=== PATIENT | female | born 1960 | race Caucasian/White ===

== ENCOUNTER → 2022-07-08 | Outpatient (CLI) | payer OTHER | END | disposition home or self-care (01) | LOC: SHCH 14:30 | PROVIDERS: ATTEND Internal Medicine Cardiovascular Disease | DX: I31.39 Other pericardial effusion (noninflammatory) (principal); I34.1 Nonrheumatic mitral (valve) prolapse; Z85.3 Personal history of malignant neoplasm of breast; Z98.82 Breast implant status | CPT/HCPCS: 93306 ==

== ENCOUNTER → 2022-09-30 | Outpatient (CLI) | payer BC | END | disposition home or self-care (01) | LOC: SHCH 09:25 | PROVIDERS: ATTEND Internal Medicine Cardiovascular Disease | DX: I31.39 Other pericardial effusion (noninflammatory) (principal) | CPT/HCPCS: 93306 ==

== ENCOUNTER → 2023-05-11 | Outpatient (CLI) | payer BC | END | disposition home or self-care (01) | LOC: SHCH 09:50 | PROVIDERS: ATTEND Internal Medicine Cardiovascular Disease | DX: I31.39 Other pericardial effusion (noninflammatory) (principal) | CPT/HCPCS: 93308 ==

== ENCOUNTER → 2024-11-01 | Outpatient (CLI) | payer BC ==
--- NOTE | 2024-11-01 20:06 | HMCSR ---
APPROVED REPORT EXAM: Two-dimensional and M-mode echocardiogram with Doppler and color Doppler. INDICATION ICD: I31.3 Pericardial effusion 2D Dimensions RVDd3.2 cmAo Root(2D)3.3 (2.0-3.7cm)LVED Vol(simp.)71.0 mL IVSd0.8 (0.7-1.1cm)LVOT diam2.0 (1.8-2.4cm)LVES Vol(simp.)26.0 mL LVDd3.8 (3.8-5.6cm)IVC diam1.7 cmLVEF(%, simp.)63 % PWd0.8 (0.7-1.1cm)LA ESV INDEX (BP)24.21 mL/m2 Aortic Valve AoV Vmax1.2 m/Zenia Peak GR5.7 mmHgLVOT Vmax1.2 m/s AoV VTI0.3 mAo Mean GR3.1 mmHgLVOT VTI0.30 m PAVAN (VMAX)3.4 cm2AVA (VTI) 3.4 cm2 Mitral Valve MV E Tjem293.4 cm/sDECEL Ckkc393 ms MV A Vmax56.3 cm/sP 1/2 T67 ms E/A ratio2.1MVA (PHT)3.3 cm2 TDI E/E' Ewxhzj12.8E/E' Ildztnb59.6 Pulmonary Valve PV Vmax0.7 m/sPV VTI0.14 mPV Mean GR1 mmHg PV Peak GR2.2 mmHgPI End Dolores. Micheal 0.8 cm/s Tricuspid Valve TR Vmax1.8 m/sRAP (EST) 3 vqKgFKGN58.1 mmHg TR Peak GR13.1 mmHg Left Ventricle Left ventricular cavity size is normal. There is normal LV segmental wall motion. There is normal lef t ventricular wall thickness. LVEF is 60-65%. Indeterminate diastolic filling pattern. Normal LA size , Normal RVSP. Elevated E/E' septal and lateral. Normal E' septal. Reduced E' lateral. Right Ventricle The right ventricle is normal size. The right ventricular systolic function is normal. Atria The left atrium size is normal. The right atrium size is normal. Aortic Valve Aortic valve is trileaflet. The aortic valve opens well. No aortic regurgitation is present. There is no aortic valvular stenosis. 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 Trace mitral valve regurgi tation. There is no mitral valve regurgitation noted. There is no mitral valve stenosis. Tricuspid Valve The tricuspid valve leaflets appear normal. There is trace tricuspid regurgitation. Normal RVSP estim ate. Pulmonic Valve Pulmonic valve is not well visualized. There is trace pulmonic valvular regurgitation. Great Vessels The aortic root is normal in size. The IVC is normal in size and collapses >50% with inspiration. Pericardium Trace pericardial effusion. Conclusion The left atrium size is normal. Left ventricular cavity size is normal. There is normal left ventricular wall thickness. There is normal LV segmental wall motion. LVEF is 60-65%. Indeterminate diastolic filling pattern. Aortic valve is trileaflet. The aortic valve opens well. 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 Trace mitral valve regurg itation. There is trace tricuspid regurgitation. Normal RVSP estimate. Trace pericardial effusion.
== END | disposition home or self-care (01) ==
LOC: SHCH 08:16
PROVIDERS: ATTEND Internal Medicine Cardiovascular Disease
DX: I31.1 Chronic constrictive pericarditis (principal); I31.39 Other pericardial effusion (noninflammatory)
CPT/HCPCS: 93306